=== PATIENT | female | born 1970 | race Caucasian/White ===

== ENCOUNTER 2024-01-18 14:43 | Outpatient (RCR) | payer OTHER, SELFPAY | END 2024-02-06 23:59 | LOC: NS 14:43 | PROVIDERS: PCP Preventive Medicine Occupational Medicine; Referring Provider Preventive Medicine Occupational Medicine; Visit Provider Preventive Medicine Occupational Medicine | DX: Z71.3 Dietary counseling and surveillance (principal); E66.9 Obesity, unspecified; Z68.35 Body mass index [BMI] 35.0-35.9, adult | CPT/HCPCS: 97802 ==

== ENCOUNTER 2024-02-14 15:20 | Outpatient (RCR) | payer OTHER, SELFPAY | END 2024-03-08 23:59 | LOC: NS 15:20 | PROVIDERS: PCP Preventive Medicine Occupational Medicine; Referring Provider Preventive Medicine Occupational Medicine; Visit Provider Preventive Medicine Occupational Medicine | DX: Z71.3 Dietary counseling and surveillance (principal); E66.9 Obesity, unspecified; Z68.34 Body mass index [BMI] 34.0-34.9, adult | CPT/HCPCS: 97803 ==